=== PATIENT | male | born 1965 | race Caucasian/White ===

== ENCOUNTER 2022-06-29 09:29 | Observation (INO) | payer OTHER ==
[~2022-06-29] VITALS: Ht 167.6 cm; Wt 63.5 kg
[2022-06-29 09:31] VITALS: BP 137/79
--- NOTE | 2022-06-29 10:10 | NUR ---
56 Y/O MALE BIBA FROM [facility] C/O RIGHT FOOT PAIN X3 DAYS, PER PT HE BELIEVES SOMETHING FELL ON THE FOOT. NOTED WARMTH AROUND THE FOOT. HX DIABETIC FOOT ULCER. NKA PMH: DM, NEUROPATHY, ESRD
--- NOTE | 2022-06-29 11:08 | NUR ---
DR WEBER AT BEDSIDE FOR EVAL
[2022-06-29] MEDS ORDERED: KETOROLAC 30 MG/ML VIAL IM ONE (11:10)
[2022-06-29] MEDS ORDERED: HYDROcodone/APAP 5/325 MG 1 TAB TAB PO ONE (11:10)
--- NOTE | 2022-06-29 11:20 | NUR ---
PER DR WEBER CANCEL TORADOL AND GIVE NORCO
--- NOTE | 2022-06-29 11:25 | NUR ---
X-Ray at bedside.
--- NOTE | 2022-06-29 11:31 | NUR ---
PER DR WEBER PT OK TO EAT CHEESE PUFFS, PT INFORMED AND EATING CHEESE PUFFS AT THIS TIME
--- NOTE | 2022-06-29 12:46 | NUR ---
pt encouraged to give urine "not right now". urinal left at bedside
--- NOTE | 2022-06-29 12:57 | NUR ---
SWABS WALKED TO LAB
[2022-06-29] MEDS ORDERED: LISI-486 PO (13:11)
[2022-06-29] MEDS ORDERED: LIP80 PO (13:11)
[2022-06-29] MEDS ORDERED: METF-1253 PO (13:11)
[2022-06-29] MEDS ORDERED: GABA300C PO (13:11)
[2022-06-29] MEDS ORDERED: INSU100V19 SQ (13:11)
[2022-06-29] MEDS ORDERED: MULT-2086 PO (13:11)
[2022-06-29] MEDS ORDERED: ASPI81CT95 PO (13:11)
[2022-06-29] MEDS ORDERED: LACT10SO40 PO (13:11)
[2022-06-29] MEDS ORDERED: ALOG25TA2 PO (13:11)
[2022-06-29] MEDS ORDERED: OMEP20EC11 PO (13:11)
[2022-06-29] MEDS ORDERED: SERT-514 PO (13:11)
[2022-06-29] MEDS ORDERED: MULT-1301 PO (13:11)
[2022-06-29 14:16] LABS: BASOPHILS % (AUTO) 0.7 % (0.0-2.0); EOSINOPHILS # (AUTO) 0.1 K/uL (0-0.4); EOSINOPHILS % (AUTO) 1.9 % (0.0-4.0); HEMATOCRIT 37.9 % (36-52); HEMOGLOBIN 12.6 g/dL (12.0-18.0); LYMPHOCYTES # (AUTO) 1.6 K/uL (2.0-11.5); LYMPHOCYTES % (AUTO) 24.4 % (20.5-51.1); MEAN CORPUSCULAR HEMOGLOBIN 26 pg (27-31); MEAN CORPUSCULAR HGB CONC 33 g/dL (33-37); MEAN CORPUSCULAR VOLUME 78.4 fL (80-94); MONOCYTES # (AUTO) 0.3 K/uL (0.8-1.0); MONOCYTES % (AUTO) 4.4 % (1.7-9.3); NEUTROPHILS # (AUTO) 4.6 K/uL (1.8-7.7); NEUTROPHILS % (AUTO) 68.6 % (42.2-75.2); PLATELET COUNT (AUTO) 134 K/uL (140-450); RED BLOOD CELL COUNT(AUTO) 4.83 MIL/uL (4.20-6.10); RED CELL DISTRIBUTION WIDTH 18.3 % (11.6-13.7); WHITE BLOOD COUNT (AUTO) 6.7 K/uL (4.8-10.8)
[2022-06-29 14:52] LABS: ALBUMIN 4.4 g/dL (3.4-5.0); ANION GAP 12.9 (8-16); CARBON DIOXIDE 28.4 mmol/L (21-32); POTASSIUM 4.3 mmol/L (3.5-5.1); TOTAL BILIRUBIN 0.6 mg/dL (0.0-1.0)
--- NOTE | 2022-06-29 15:12 | NUR ---
pt recouranged to give urine.
--- NOTE | 2022-06-29 15:12 | NUR ---
MD RAY AT BEDSIDE FOR EVALUATION.
[2022-06-29] MEDS ORDERED: ONDANSETRON 4 MG/2 ML VIAL IVP PRN (15:20)
[2022-06-29] MEDS ORDERED: MORPHINE SULFATE 4 MG/ML SYR IVP PRN (15:20)
[2022-06-29] MEDS ORDERED: ACETAMINOPHEN 325 MG TAB PO PRN (15:20)
[2022-06-29] MEDS ORDERED: INSULIN LANTUS 100 UNITS/ML 10 ML VIAL SUBQ SCH (15:20)
[2022-06-29] MEDS ORDERED: HYDROcodone/APAP 5/325 MG 1 TAB TAB PO PRN (15:20)
[2022-06-29] MEDS ORDERED: VANCOMYCIN PER PHARMACY MC PRN (15:25)
[2022-06-29] MEDS: NACL 0.9% 1,000 ML IV SCH (15:30)
--- NOTE | 2022-06-29 18:02 | NUR ---
pt provided w/ dinner. pt awake , repositioned and eating in bed.
[2022-06-29] MEDS ORDERED: VANCOMYCIN 1,000 MG VIAL ONE (18:04)
[2022-06-29] MEDS: VANCOMYCIN 1,000 MG in DEXTROSE 5% 250 ML IV SCH (18:12)
--- NOTE | 2022-06-29 19:21 | NUR ---
REPORT GIVEN TO SIMIN CASTANON. TRANSFER OF CARE AT THIS TIME
--- NOTE | 2022-06-29 20:21 | NUR ---
new line started on pt's R hand 24g, due to previous line not being accessible.
--- NOTE | 2022-06-29 22:00 | NUR ---
pt in room and on compliance monitor. tolerated food well and awaiting admission
--- NOTE | 2022-06-30 02:30 | NUR ---
pt resting in room, stated he had bilateral hand and feet pain. 11/19
[2022-06-30] MEDS: NACL 0.9% 1,000 ML IV SCH ×2 (04:59→16:09)
[2022-06-30] MEDS ORDERED: VANCOMYCIN 1,000 MG VIAL ONE (05:35)
[2022-06-30] MEDS: VANCOMYCIN 1,000 MG in DEXTROSE 5% 250 ML IV SCH ×2 (05:45→16:07)
--- NOTE | 2022-06-30 05:46 | NUR ---
resting in room awaiting admission on supervisor coating
--- NOTE | 2022-06-30 06:31 | NUR ---
lab at bedside
[2022-06-30 07:07] LABS: BASOPHILS % (AUTO) 0.6 % (0.0-2.0); EOSINOPHILS # (AUTO) 0.1 K/uL (0-0.4); EOSINOPHILS % (AUTO) 2.8 % (0.0-4.0); HEMATOCRIT 36.2 % (36-52); HEMOGLOBIN 11.9 g/dL (12.0-18.0); LYMPHOCYTES # (AUTO) 1.3 K/uL (2.0-11.5); LYMPHOCYTES % (AUTO) 27.1 % (20.5-51.1); MEAN CORPUSCULAR HEMOGLOBIN 26 pg (27-31); MEAN CORPUSCULAR HGB CONC 33 g/dL (33-37); MEAN CORPUSCULAR VOLUME 78.2 fL (80-94); MONOCYTES # (AUTO) 0.3 K/uL (0.8-1.0); MONOCYTES % (AUTO) 6.7 % (1.7-9.3); NEUTROPHILS % (AUTO) 62.8 % (42.2-75.2); PLATELET COUNT (AUTO) 114 K/uL (140-450); RED BLOOD CELL COUNT(AUTO) 4.63 MIL/uL (4.20-6.10); RED CELL DISTRIBUTION WIDTH 18.6 % (11.6-13.7); WHITE BLOOD COUNT (AUTO) 4.7 K/uL (4.8-10.8)
--- NOTE | 2022-06-30 07:23 | NUR ---
Pt report given to Marianne. Transfer of care at this time.
--- NOTE | 2022-06-30 07:27 | NUR ---
Report recieved from LG Wilson for transfer of care.
[2022-06-30 07:29] LABS: ANION GAP 10.6 (8-16); CARBON DIOXIDE 28.6 mmol/L (21-32); POTASSIUM 4.2 mmol/L (3.5-5.1)
--- NOTE | 2022-06-30 08:32 | NUR ---
Patient will be admitted to care of Dr. Horoiwtz. Admited to Med/Surg. Will go to room 112-B. Belongings list completed. Report to TERRI Gregorio.
--- NOTE | 2022-06-30 08:40 | NUR ---
The patient's care was reviewed and supervised by ED Agency Nurse 9, RN, RN.
[2022-06-30 08:47] VITALS: BP 126/51
--- NOTE | 2022-06-30 09:00 | NUR ---
RECEIVED PT FROM ER, REPORT RECEIVED BY ER NURSE. PATIENT IS AAO x4, RESPIRATIONS EVEN AND UL ON RA, DENIES PAIN/DISCOMFORT. IV SITE TO RH AND LH, IV SITES WNL. VITAL SIGNS STABLE. RIGHT FOOT SCABS x2, CLUB ROOM ATTENDANT, NO DRAINAGE NOTED. 1 SCAB NOTED TO LLE, YUNG, NO DRAINIAGE NOTED. DRY SKIN NOTED TO BLE. WOUND PHOTO DOCUMENTATION TAKEN AND PLACED IN CHART. ADMISSION INFORMATION OBTAINED FROM PATIENT. ALL NEEDS MET. SAFETY MEASURES IN PLACE, CALL LIGHT IN REACH.
[2022-06-30] MEDS ORDERED: CEPH-588 PO (10:35)
[2022-06-30 16:00] VITALS: BP 130/73
[2022-06-30 17:28] VITALS: BP 140/80
--- NOTE | 2022-06-30 18:10 | NUR ---
RECEIVED DISCHARGE ORDERS, DISCHARGE PACKET GIVEN AND EXPLAINED TO PATIENT, PATIENT VERBALIZED UNDERSTANDING OF ALL DISCHARGE PACKET/INSTRUCTIONS/PRESCRIPTIONS/EDUCATION MATERIALS/FOLLOW UP APPT. SIGNED DISCHARGE PACKET PLACED IN CHART. PT DRESSED AND PREPARED FOR DISCHARGE. PER CONTRACT PROCESSOR PANKAJ, TRANSPORTATION BACK TO [facility] IS SCHEDULED FOR 18OO. CALLED [facility] AND SPOKE WITH [employer], REPORT GIVEN.
--- NOTE | 2022-06-30 18:33 | NUR ---
PATIENT DISCHARGED WITH ALL BELONGINGS INCLUDING CELL PHONE, WALLET, CLOTHING, DISCHARGE PACKET. PATIENT TAKEN BY [facility], REPORT GIVEN TO TRANSPORTATION. IV SITES REMOVED, CATH INTACT, NO BLEEDING NOTED.
--- NOTE | 2022-06-30 18:33 | NUR ---
SIGNED DISCHARGE PACKET PLACED IN CHART.
[2022-07-01] MEDS ORDERED: SODIUM CHLORIDE 1 GM TAB PO SCH (09:00)
== END 2022-06-30 18:33 ==
LOC: MED 09:29 → MMU 15:19 → MTU 15:19
PROVIDERS: ADMIT Student in an Organized Health Care Education/Training Program; ATTEND Student in an Organized Health Care Education/Training Program
DX: L03.116 Cellulitis of left lower limb (principal); Z20.822 Contact with and (suspected) exposure to COVID-19; L03.115 Cellulitis of right lower limb; I13.2 Hypertensive heart and chronic kidney disease with heart failure and with stage 5 chronic kidney disease, or end stage renal disease; E11.22 Type 2 diabetes mellitus with diabetic chronic kidney disease; I50.9 Heart failure, unspecified; N18.6 End stage renal disease; E86.1 Hypovolemia; E87.1 Hypo-osmolality and hyponatremia; E78.5 Hyperlipidemia, unspecified; Z99.2 Dependence on renal dialysis; Z86.73 Personal history of transient ischemic attack (TIA), and cerebral infarction without residual deficits; Z79.899 Other long term (current) drug therapy; Z23 Encounter for immunization
CPT/HCPCS: 36415; 73630; 80048; 80053; 85025; 87426; 90471; 90715; 96361; 96365; 96366; 96375; 97110; 97116; 97162; 97530; 99284; G0378; J2270; J3370; Q0092; J7060

== ENCOUNTER 2022-07-23 16:01 | Emergency (ER) | payer OTHER ==
[~2022-07-23] VITALS: Ht 167.6 cm; Wt 82.8 kg
[~2022-07-23 16:01] MED LIST: ALOG25TA2 PO; ASPI81CT95 PO; CEPH-588 PO; GABA300C PO; INSU100V19 SQ; LACT10SO40 PO; LIP80 PO; LISI-486 PO; METF-1253 PO; MULT-1301 PO; MULT-2086 PO; OMEP20EC11 PO; SERT-514 PO
--- NOTE | 2022-07-23 16:16 | NUR ---
BIBA BLS TO ER BED 5
[2022-07-23 16:24] VITALS: BP 135/57
[2022-07-23] MEDS ORDERED: MORPHINE SULFATE 4 MG/ML SYR IVP ONE (16:35)
[2022-07-23] MEDS ORDERED: VANCOMYCIN 1,000 MG in DEXTROSE 5% 250 ML IV ONE (16:35)
[2022-07-23] MEDS ORDERED: NACL 0.9% 1,000 ML IV SCH (16:35)
[2022-07-23] MEDS ORDERED: ONDANSETRON 4 MG/2 ML VIAL IVP ONE (16:35)
[2022-07-23 18:14] LABS: BASOPHILS % (AUTO) 0.4 % (0.0-2.0); EOSINOPHILS # (AUTO) 0.1 K/uL (0-0.4); HEMATOCRIT 34.7 % (36-52); HEMOGLOBIN 11.6 g/dL (12.0-18.0); LYMPHOCYTES # (AUTO) 1.3 K/uL (2.0-11.5); MEAN CORPUSCULAR HEMOGLOBIN 26 pg (27-31); MEAN CORPUSCULAR HGB CONC 34 g/dL (33-37); MEAN CORPUSCULAR VOLUME 78.8 fL (80-94); MONOCYTES # (AUTO) 0.3 K/uL (0.8-1.0); MONOCYTES % (AUTO) 5.4 % (1.7-9.3); NEUTROPHILS # (AUTO) 4.5 K/uL (1.8-7.7); NEUTROPHILS % (AUTO) 72.2 % (42.2-75.2); PLATELET COUNT (AUTO) 135 K/uL (140-450); RED BLOOD CELL COUNT(AUTO) 4.41 MIL/uL (4.20-6.10); RED CELL DISTRIBUTION WIDTH 18.9 % (11.6-13.7); WHITE BLOOD COUNT (AUTO) 6.3 K/uL (4.8-10.8)
[2022-07-23] MEDS ORDERED: MORPHINE SULFATE 4 MG/ML SYR ONE (18:34)
[2022-07-23 18:38] LABS: ALBUMIN 3.9 g/dL (3.4-5.0); ANION GAP 12.1 (8-16); CARBON DIOXIDE 28.5 mmol/L (21-32); CREATININE 1.1 mg/dL (0.6-1.3); POTASSIUM 3.6 mmol/L (3.5-5.1); TOTAL BILIRUBIN 0.6 mg/dL (0.0-1.0)
[2022-07-23] MEDS ORDERED: VANCOMYCIN 1,000 MG VIAL ONE (18:38)
[2022-07-23] MEDS ORDERED: ONDANSETRON 4 MG/2 ML VIAL ONE (18:38)
[2022-07-23] MEDS ORDERED: NON ADHERENT DRESSING TP SCH (19:10)
[2022-07-23] MEDS ORDERED: BACITRACIN OINT 500 UNITS/GM PKT TP ONE ×2 (19:10→21:10)
[2022-07-23] MEDS ORDERED: BACO TP (19:14)
[2022-07-23] MEDS ORDERED: ACET-10509 PO (19:14)
--- NOTE | 2022-07-23 19:21 | NUR ---
Report given to TERRI Peña for transfer of care.
--- NOTE | 2022-07-23 19:26 | NUR ---
PT MOVED FROM ER BED 5 TO ER BED 1
--- NOTE | 2022-07-23 19:37 | NUR ---
bilateral anterior calf wounds dressed with non adherent and bandaged with roller gauze
--- NOTE | 2022-07-23 20:00 | NUR ---
Patient received on bed lying comfortably and awake. Alert and orieted x4. No acute distress. No complaints of pain or discomfort. Respirations even and unlabored.
--- NOTE | 2022-07-23 22:15 | NUR ---
Called [facility] and spoke to TERRI Curran. Notified [facility] of patient's situation of being discharged and will be sent back to their facility.
[2022-07-23 22:21] VITALS: BP 130/60
--- NOTE | 2022-07-23 22:21 | NUR ---
Patient discharged with v/s stable. Written and verbal after care instructions given and explained. Patient alert, oriented and verbalized understanding of instructions. Wheel Chair Assisted with by caregiver. All questions addressed prior to discharge. ID band removed. Patient advised to follow up with PMD. Rx of Tylenol and Bacitracin given. Patient educated on indication of medication including possible reaction and side effects. Opportunity to ask questions provided and answered.
== END 2022-07-23 22:21 | disposition home or self-care (01) ==
LOC: MED 16:01
DX: E11.621 Type 2 diabetes mellitus with foot ulcer (principal); L97.511 Non-pressure chronic ulcer of other part of right foot limited to breakdown of skin; E11.65 Type 2 diabetes mellitus with hyperglycemia; E11.622 Type 2 diabetes mellitus with other skin ulcer; L97.321 Non-pressure chronic ulcer of left ankle limited to breakdown of skin; D64.9 Anemia, unspecified; E87.1 Hypo-osmolality and hyponatremia; E87.8 Other disorders of electrolyte and fluid balance, not elsewhere classified; I10 Essential (primary) hypertension; N18.6 End stage renal disease; I25.10 Atherosclerotic heart disease of native coronary artery without angina pectoris; Z86.73 Personal history of transient ischemic attack (TIA), and cerebral infarction without residual deficits; Z99.2 Dependence on renal dialysis; Z79.4 Long term (current) use of insulin; Z79.899 Other long term (current) drug therapy
CPT/HCPCS: 36415; 73630; 80053; 83605; 85025; 85610; 85651; 85730; 86140; 87040; 96361; 96365; 96375; 99285; J2270; J2405; J3370; J7030

== ENCOUNTER 2022-08-24 15:02 | Inpatient (IN) | payer OTHER ==
[~2022-08-24] VITALS: Ht 167.6 cm; Wt 90.7 kg
[~2022-08-24 15:02] MED LIST changes: +ACET-10509 PO; +BACO TP; +LACT-58 PO; -LACT10SO40 PO
[2022-08-24 15:09] VITALS: BP 139/71
--- NOTE | 2022-08-24 15:30 | NUR ---
LAB AT BEDSIDE.
[2022-08-24 15:49] LABS: BASOPHILS % (AUTO) 0.4 % (0.0-2.0); EOSINOPHILS # (AUTO) 0.2 K/uL (0-0.4); EOSINOPHILS % (AUTO) 2.2 % (0.0-4.0); HEMATOCRIT 35.8 % (36-52); LYMPHOCYTES # (AUTO) 1.7 K/uL (2.0-11.5); LYMPHOCYTES % (AUTO) 24.4 % (20.5-51.1); MEAN CORPUSCULAR HEMOGLOBIN 27 pg (27-31); MEAN CORPUSCULAR HGB CONC 34 g/dL (33-37); MEAN CORPUSCULAR VOLUME 81.4 fL (80-94); MONOCYTES # (AUTO) 0.4 K/uL (0.8-1.0); MONOCYTES % (AUTO) 6.1 % (1.7-9.3); NEUTROPHILS # (AUTO) 4.8 K/uL (1.8-7.7); NEUTROPHILS % (AUTO) 66.9 % (42.2-75.2); PLATELET COUNT (AUTO) 136 K/uL (140-450); RED CELL DISTRIBUTION WIDTH 17.9 % (11.6-13.7); WHITE BLOOD COUNT (AUTO) 7.2 K/uL (4.8-10.8)
--- NOTE | 2022-08-24 15:53 | NUR ---
57 Y/OM BIBA FROM [facility] C/O DIABETIC ULCERS X2 MONTHS W FEET PAIN 09/19. PMH: HTN, DM, HIGH CHOL ALLERGIES:DENIES
[2022-08-24 16:23] LABS: ALBUMIN 3.5 g/dL (3.4-5.0); ANION GAP 12.1 (8-16); ASPARTATE AMINOTRANSFERASE 23 U/L (15-37); CARBON DIOXIDE 29.6 mmol/L (21-32); CHLORIDE 99 mmol/L (98-107); GFR ARICAN-AMERICAN 99 mL/min (>90); GLUCOSE 241 mg/dL (74-106); POTASSIUM 3.7 mmol/L (3.5-5.1); SODIUM SERUM 137 mmol/L (136-145); TOTAL BILIRUBIN 0.4 mg/dL (0.0-1.0); UREA NITROGEN, BLOOD 19 mg/dL (7-18)
[2022-08-24] MEDS ORDERED: VANCOMYCIN 1,000 MG in DEXTROSE 5% 250 ML IV ONE (16:40)
[2022-08-24] MEDS ORDERED: cefTRIAXone 2,000 MG in DEXTROSE 5% 100 ML IV ONE (16:40)
[2022-08-24] MEDS ORDERED: NACL 0.9% 1,000 ML IV ONE (16:45)
[2022-08-24] MEDS ORDERED: cefTRIAXone 2,000 MG VIAL ONE (16:51)
[2022-08-24] MEDS ORDERED: MORPHINE SULFATE 4 MG/ML SYR IVP ONE (16:55)
[2022-08-24] MEDS ORDERED: NAPR-1704 PO (18:01)
[2022-08-24] MEDS ORDERED: [UNRECOGNIZED DRUG - CODE] PO (18:01)
[2022-08-24] MEDS ORDERED: NEOM1OIN15 TP (18:01)
[2022-08-24] MEDS ORDERED: ALUM355S50 PO (18:01)
[2022-08-24] MEDS ORDERED: ACET-2619 PO (18:01)
[2022-08-24] MEDS ORDERED: TRAM50TA3 PO (18:01)
[2022-08-24] MEDS ORDERED: ALBU0.0912 IH (18:01)
[2022-08-24] MEDS ORDERED: [UNRECOGNIZED DRUG - CODE] PO (18:01)
[2022-08-24] MEDS ORDERED: TEMA15CA24 PO (18:01)
[2022-08-24] MEDS ORDERED: INSU100I7 SQ (18:01)
[2022-08-24] MEDS ORDERED: MULT-135 PO (18:01)
[2022-08-24] MEDS ORDERED: MAGN400S60 PO (18:01)
[2022-08-24] MEDS ORDERED: HUM SUBQ (18:01)
[2022-08-24] MEDS ORDERED: MECL-370 PO (18:01)
[2022-08-24] MEDS ORDERED: ALOG25TA PO (18:01)
[2022-08-24] MEDS ORDERED: LACT10SO93 PO (18:01)
[2022-08-24] MEDS ORDERED: VANCOMYCIN 1,000 MG VIAL ONE (18:05)
[2022-08-24] MEDS ORDERED: LORazepam 2 MG/ML VIAL IVP PRN (18:45)
[2022-08-24] MEDS ORDERED: ONDANSETRON 4 MG/2 ML VIAL IVP PRN (18:45)
[2022-08-24] MEDS ORDERED: ACETAMINOPHEN 325 MG TAB PO PRN (18:45)
[2022-08-24] MEDS ORDERED: VANCOMYCIN PER PHARMACY MC PRN (18:50)
--- NOTE | 2022-08-24 19:04 | NUR ---
The patient's care was reviewed and supervised by [place] 05 RODO, RN.
[2022-08-24] MEDS: NACL 0.9% 1,000 ML IV SCH (19:11)
--- NOTE | 2022-08-24 19:13 | NUR ---
Patient resting in bed, A/Ox4, chest rise and fall symmetrical, no c/o pain or s/s of distress, on monitor.
--- NOTE | 2022-08-24 19:14 | NUR ---
GAVE REPORT TO NIECY MURRAY.
--- NOTE | 2022-08-24 21:07 | NUR ---
Urinal emptied, yellow/clear, 600 mL.
--- NOTE | 2022-08-24 21:07 | NUR ---
Patient resting in bed, A/Ox4, chest rise and fall symmetrical, no c/o pain or s/s of distress, on monitor.
--- NOTE | 2022-08-24 22:04 | NUR ---
Patient resting in bed, A/Ox4, chest rise and fall symmetrical, no c/o pain or s/s of distress, on monitor.
--- NOTE | 2022-08-24 22:25 | NUR ---
Patient will be admitted to care of Dr. Taylor. Admited to Medr. Will go to room 104B. Belongings list completed. Report to Yasmeen MURRAY. Yasmeen MURRAY verbalized understanding of report, no further questions.
--- NOTE | 2022-08-24 22:36 | NUR ---
Ifrah lane in ED - 08/24/22 at 2241 by [id number] Med/tele Charge Nurse SOCORRO MURRAY verbally informed that verbal order received for DM sliding scale which was ordered for 2300 hrs. Med/tele Charge Nurse SOCORRO MURRAY verbalized understanding and stated that she "will let Yasmeen MURRAY know."
[2022-08-24] MEDS ORDERED: DEXTROSE 50% 50 ML SYR IVP PRN (23:00)
[2022-08-25] VITALS: BP 161/84
[2022-08-25] MEDS ORDERED: cefTRIAXone 1,000 MG VIAL ONE (00:02)
[2022-08-25] MEDS: BLOOD GLUCOSE MONITORING 1 DEV DEV FS SCH ×6 (00:30→21:26)
[2022-08-25] MEDS: INSULIN LISPRO SLIDING SCALE 100 UNITS/ML VIAL SUBQ PRN ×4 (00:37→21:26)
[2022-08-25] MEDS: MORPHINE SULFATE 2 MG/ML SYR IVP PRN ×2 (00:59→12:49)
[2022-08-25] MEDS ORDERED: VANCOMYCIN 1,000 MG in DEXTROSE 5% 250 ML IV SCH (06:00)
[2022-08-25 06:31] LABS: BASOPHILS % (AUTO) 0.8 % (0.0-2.0); EOSINOPHILS # (AUTO) 0.2 K/uL (0-0.4); EOSINOPHILS % (AUTO) 3.7 % (0.0-4.0); HEMATOCRIT 33.2 % (36-52); LYMPHOCYTES # (AUTO) 1.1 K/uL (2.0-11.5); LYMPHOCYTES % (AUTO) 23.8 % (20.5-51.1); MEAN CORPUSCULAR HEMOGLOBIN 27 pg (27-31); MEAN CORPUSCULAR HGB CONC 33 g/dL (33-37); MEAN CORPUSCULAR VOLUME 81.2 fL (80-94); MONOCYTES # (AUTO) 0.3 K/uL (0.8-1.0); MONOCYTES % (AUTO) 6.5 % (1.7-9.3); NEUTROPHILS % (AUTO) 65.2 % (42.2-75.2); PLATELET COUNT (AUTO) 117 K/uL (140-450); RED BLOOD CELL COUNT(AUTO) 4.09 MIL/uL (4.20-6.10); RED CELL DISTRIBUTION WIDTH 17.5 % (11.6-13.7); WHITE BLOOD COUNT (AUTO) 4.7 K/uL (4.8-10.8)
[2022-08-25 06:51] LABS: ALBUMIN 3.1 g/dL (3.4-5.0); ANION GAP 11.1 (8-16); CARBON DIOXIDE 31.7 mmol/L (21-32); CREATININE 0.9 mg/dL (0.6-1.3); MAGNESIUM 1.2 mg/dL (1.8-2.4); POTASSIUM 3.8 mmol/L (3.5-5.1); TOTAL BILIRUBIN 0.3 mg/dL (0.0-1.0)
[2022-08-25 08:00] VITALS: BP 148/67
[2022-08-25] MEDS: NACL 0.9% 1,000 ML IV SCH ×2 (09:22→21:25)
[2022-08-25] MEDS: VANCOMYCIN 1,000 MG in DEXTROSE 5% 250 ML IV SCH ×2 (09:23→22:10)
--- NOTE | 2022-08-25 11:09 | NUR ---
RECEIVED A CALL FROM RERE, PT'S SISTER ([phone]), REQUESTING PT STAY ON DIABETIC DIET. CONCERNS FORWARDED TO DIETARY DEPARTMENT.
[2022-08-25 16:00] VITALS: BP 143/76
[2022-08-25] MEDS: MAG SULF 2000 MG/WATER PREMIX 50 ML IV ONE ×2 (18:17→23:17)
--- NOTE | 2022-08-25 18:46 | NUR ---
Saline Lock pulled out (accidently). Restart attempted x 1 - failed. Endorsed to CN for further f/u.
--- NOTE | 2022-08-25 19:25 | NUR ---
RECEIVED PATIENT RESTING COMFORTABLY IN BED. NO SOB NOTED ON ROOM AIR. DENIES PAIN. NO IV ACCESS. CALL LIGHT WITHIN REACH. SAFETY MEASURES ARE IN PLACE.
--- NOTE | 2022-08-25 19:50 | NUR ---
STARTED A NEW IV TO RIGHT FOREARM 22 GAUGE WITH GOOD RETURN OF BLOOD. TOLERATED WELL.
--- NOTE | 2022-08-25 20:36 | NUR ---
DUE MEDS GIVEN.
[2022-08-26] VITALS: BP 137/73
--- NOTE | 2022-08-26 03:14 | NUR ---
PATIENT COMPLAINED OF PAIN 11/19, MORPHINE GIVEN IVP.
--- NOTE | 2022-08-26 07:34 | NUR ---
GAVE REPORT TO AM SHIFT NURSE FOR CONTINUITY OF CARE. PATIENT STABLE.
[2022-08-26 07:47] VITALS: BP 158/79
[2022-08-26] MEDS: VANCOMYCIN 1,000 MG in DEXTROSE 5% 250 ML IV SCH ×2 (08:35→22:52)
--- NOTE | 2022-08-26 09:22 | NUR ---
PATIENT HAS BEEN SCREENED AND CATEGORIZED HIGH NUTRITION RISK. PATIENT WILL BE SEEN WITHIN 1-2 DAYS OF ADMISSION. 08/24/22-08/26/[address] REFERRAL RECEIVED FOR WOUNDS/PRESSURE INJURY
[2022-08-26] MEDS: NACL 0.9% 1,000 ML IV SCH (10:56)
[2022-08-26] MEDS: BLOOD GLUCOSE MONITORING 1 DEV DEV FS SCH ×3 (11:32→21:44)
[2022-08-26] MEDS: INSULIN LISPRO SLIDING SCALE 100 UNITS/ML VIAL SUBQ PRN ×2 (11:37→21:48)
--- NOTE | 2022-08-26 14:05 | NUR ---
08/26/22 RD INITIAL ASSESSMENT COMPLETED.PLEASE REFER TO NUTRITION ASSESSMENT UNDER CARE ACTIVITY FOR ESTIMATED NUTRITIONAL NEEDS. 1. CONTINUE CCHO 60 GM DIET 2. RECOMMEND TRESSA BID TO PROMOTE WOUND HEALING 3. MONITOR FOR WOUND HEALING 4. RD TO FOLLOW-UP 3-5 DAYS, MODERATE RISK [address] Addendum: 08/27/22 at [address] RECOMMEND SWITCHING TRESSA BID WITH PROSOURCE BID FOR WOUND SUPPORT PER PT REQUESTING MORE PROTEIN. -PROSOURCE BID PROVIDES 120 KCAL AND 30 GM PROTEIN DAILY.
[2022-08-26 16:00] VITALS: BP 142/82
[2022-08-26] MEDS: MORPHINE SULFATE 2 MG/ML SYR IVP PRN (20:10)
--- NOTE | 2022-08-26 20:10 | NUR ---
SCHEDULED MEDICATIONS DUE GIVEN. PATIENT AWAKE ALERT VERBALLY RESPONSIVE. NO DISTRESS NOTED. ABLE TO MAKE NEEDS KNOWN. COMPLAINED OF SEVERE RIGHT FOOT PAIN, MEDICATED. CALL LIGHT WITHIN REACH BED WHEELS LOCKED. AFEBRILE.
[2022-08-27] VITALS: BP 147/78
[2022-08-27] MEDS: NACL 0.9% 1,000 ML IV SCH ×2 (00:05→13:25)
[2022-08-27] MEDS: MORPHINE SULFATE 2 MG/ML SYR IVP PRN (01:59)
--- NOTE | 2022-08-27 01:59 | NUR ---
PATIENT COMPLAINED OF MODERATE RIGHT FOOT PAIN, MEDICATED ORDERED.
[2022-08-27] MEDS: INSULIN LISPRO SLIDING SCALE 100 UNITS/ML VIAL SUBQ PRN ×4 (06:47→20:56)
[2022-08-27] MEDS: BLOOD GLUCOSE MONITORING 1 DEV DEV FS SCH ×4 (06:47→20:51)
--- NOTE | 2022-08-27 07:20 | NUR ---
RECEIVED REPORT FROM KITCHEN HELP HANDYMAN NURSE NANCY FOR CONTINUITY OF CARE. INITIAL ASSESSMENT DONE. IVF INFUSING WELL. NO C/O PAIN OR DISCOMFORT. CALL LIGHT KEPT WITHIN REACH. WILL MONITOR CLOSELY.
--- NOTE | 2022-08-27 07:20 | NUR ---
RECEIVED PT IN Addendum: 08/27/22 at 1240 by ASHANTI JACOBS LVN ENTERED INCOMPLETE DOCUMENTATION
--- NOTE | 2022-08-27 07:28 | NUR ---
GAVE REPORT TO DAY SHIFT NURSE FOR CONTINUITY OF CARE. PATIENT STABLE.
[2022-08-27 08:00] VITALS: BP 126/55
[2022-08-27] MEDS: VANCOMYCIN 1,000 MG in DEXTROSE 5% 250 ML IV SCH (08:31)
--- NOTE | 2022-08-27 08:31 | NUR ---
IV ABT VANCOMYCIN WAS GIVEN BY ALEJANDRO MURRAY. TOLERATED WELL.
[2022-08-27 08:48] LABS: ALBUMIN 3.1 g/dL (3.4-5.0); ANION GAP 11.1 (8-16); CARBON DIOXIDE 29.8 mmol/L (21-32); CREATININE 0.9 mg/dL (0.6-1.3); POTASSIUM 3.9 mmol/L (3.5-5.1); TOTAL BILIRUBIN 0.4 mg/dL (0.0-1.0)
--- NOTE | 2022-08-27 09:57 | NUR ---
RECEIVED CALLED FROM LAB. MRSA NARES POSITIVE. DR. ANDERSEN NOTIFIED. PROTOCOL INITIATED.
--- NOTE | 2022-08-27 11:43 | NUR ---
PT. ADMITTED WITH BILATERAL LOWER LEGS CELLULITIS , MULTIPLE OPEN WOUNDS WITH LARGEST TO LEFT DORSAL FOOT 3X4X0.3CM WOUND BED YELLOW / BROWN SMALL AMOUNT PURULENT DRAINAGE, MILD ODOR, PAIN 0/10. PENDING PODIATRY CONSULT AND WOUND CX RESULT. AT THIS TIME WILL TREAT WOUND WITH, CLEANSE WOUNDS WITH WOUND CLEANSING SOLUTION, PAT DRY, APPLY OIL EMULSION DRESSING, COVER WITH DRY DRESSING AND WRAP WITH KERLIX ROLL,SECURED WITH TAPE. DAILY AND PRN IF SOILING.
--- NOTE | 2022-08-27 12:02 | NUR ---
BS CHECKED 224. INSULIN WAS GIVEN PER SLIDING SCALE.
--- NOTE | 2022-08-27 12:46 | NUR ---
DC PLANNING ASSESSMENT COMPLETE PLEASE REFER TO ASSESSMENT FOR ADDITIONAL DETAILS PATIENT REPORTS TENTATIVE DC PLAN IS PENDING PHYSICIANS RECEOMMENDATIONS. SPOKE TO PT ABOUT SNF IF RECOMMENDED, PT REPORTS AGREEMENT TO SNF IF RECOMMENDED BY PHYSICIAN, SO LONG IT IS SHORT TERM AND TEMP. SW ENDORSED TO CM. Addendum: 08/27/22 at 1247 by Jasmin CLANCY Amended: Links added.
--- NOTE | 2022-08-27 13:58 | NUR ---
DC PLANNIN YRS OLD MALE PATIENT WAS ADMITTED FROM [facility] WITH A DX OF PATIENT HAS A HX OF HTN, DM, HLD AND CHRONIC DIABETIC ULCERS TO THE LOWER EXTREMITIES. KRYSTINA ULTRASOUND SHOWED NO DVT . RAPID COVID TEST NEGATIVE. ADMINISTERED IVF, IV ABX VANCOMYCIN AND ROCEPHIN AND CONTINUED HOME MEDS. SEEN BY DR HOANG NOT NEED ANY SURGICAL INTERVENTION AWAITING FOR WOUND CULTURE . DC PLAN SNF FOR IV ABX. CM TO FOLLOW Addendum: 08/29/22 at 1255 by Camila Loja RN DC PLANNING RECEIVED A CALL FROM SAVANNAH CHAVEZ SPOKE WITH CINDY NOVAK PT CAN GO TO ROOM 19B CALLED XIN AT [facility] PROVIDE THE AUTH FOR TRANSPORT [id number] AND FOR SAVANNAH VALENTIN [id number] ARRANGED TRANSPORT WITH [facility] SKETCHER TIME 3PM NOTIFIED PATIENT AND DARYL MURRAY. CM TO FOLLOW
[2022-08-27 16:00] VITALS: BP 136/82
[2022-08-27] MEDS: CHLORHEXADINE GLUC 2% CLOTH TP SCH (16:00)
[2022-08-27] MEDS: MUPIROCIN CA NASAL 2% 1GM TUBE NS SCH (16:00)
--- NOTE | 2022-08-27 17:07 | NUR ---
BS CHECKED 288. INSULIN WAS GIVEN PER SLIDING SCALE. ADMINISTERED SCHEDULED MEDICATIONS. TOLERATED WELL.
[2022-08-27] MEDS: GABAPENTIN 300 MG CAP PO SCH (17:13)
--- NOTE | 2022-08-27 19:15 | NUR ---
REPORT GIVEN TO NANCY FOR CONTINUITY OF CARE. REMAINS STABLE.
--- NOTE | 2022-08-27 19:16 | NUR ---
RECEIVED PATIENT AWAKE RESTING IN BED, NO S/S OF RESPIRATORY DISTRESS. NO COMPLAINTS OF PAIN AT THIS TIME. IVF NS INFUSING ORDERED. CALL LIGHT WITHIN REACH. BED WHEELS LOCK IN LOWEST POSITION. WILL CONTINUE TO MONITOR.
[2022-08-27] MEDS: VANCOMYCIN 1.25GM PREMIX 250 ML IV SCH (20:48)
--- NOTE | 2022-08-27 20:48 | NUR ---
VANCOMYCIN ADMINISTERED ORDERED.
[2022-08-27] MEDS: INSULIN LANTUS 100 UNITS/ML 10 ML VIAL SUBQ SCH (20:56)
[2022-08-28] VITALS: BP 155/80
[2022-08-28] MEDS: NACL 0.9% 1,000 ML IV SCH ×4 (01:52→21:39)
--- NOTE | 2022-08-28 07:22 | NUR ---
RECEIVED REPORT FROM KEY MAKER FOR CONTINUITY OF CARE. INITIAL ASSESSMENT DONE. IVF INFUSING WELL. NOT IN ANY DISTRESS NOTED. CALL LIGHT KEPT WITHIN REACH. WILL MONITOR CLOSELY.
--- NOTE | 2022-08-28 07:23 | NUR ---
BEDSIDE REPORT GIVEN TO DAY SHIFT NURSE FOR CONTINUITY OF CARE.
[2022-08-28 07:26] LABS: BASOPHILS % (AUTO) 0.4 % (0.0-2.0); EOSINOPHILS # (AUTO) 0.1 K/uL (0-0.4); HEMOGLOBIN 11.8 g/dL (12.0-18.0); LYMPHOCYTES # (AUTO) 1.4 K/uL (2.0-11.5); LYMPHOCYTES % (AUTO) 23.6 % (20.5-51.1); MEAN CORPUSCULAR HEMOGLOBIN 27 pg (27-31); MEAN CORPUSCULAR HGB CONC 34 g/dL (33-37); MEAN CORPUSCULAR VOLUME 80.6 fL (80-94); MONOCYTES # (AUTO) 0.4 K/uL (0.8-1.0); MONOCYTES % (AUTO) 6.5 % (1.7-9.3); NEUTROPHILS # (AUTO) 4.1 K/uL (1.8-7.7); NEUTROPHILS % (AUTO) 67.5 % (42.2-75.2); PLATELET COUNT (AUTO) 145 K/uL (140-450); RED BLOOD CELL COUNT(AUTO) 4.35 MIL/uL (4.20-6.10); RED CELL DISTRIBUTION WIDTH 17.1 % (11.6-13.7)
[2022-08-28] MEDS: BLOOD GLUCOSE MONITORING 1 DEV DEV FS SCH ×4 (07:36→21:37)
[2022-08-28 08:00] VITALS: BP 155/89
[2022-08-28 08:05] LABS: ANION GAP 13.1 (8-16); CARBON DIOXIDE 27.7 mmol/L (21-32); CREATININE 0.8 mg/dL (0.6-1.3); POTASSIUM 3.8 mmol/L (3.5-5.1)
[2022-08-28] MEDS: INSULIN LANTUS 100 UNITS/ML 10 ML VIAL SUBQ SCH ×2 (08:27→21:39)
--- NOTE | 2022-08-28 08:36 | NUR ---
SCHEDULED PO MEDICATIONS GIVEN. TOLERATING WELL.
[2022-08-28] MEDS: ASPIRIN 81 MG TAB.CHEW PO SCH (08:37)
[2022-08-28] MEDS: SERTRALINE 50 MG TAB PO SCH (08:37)
[2022-08-28] MEDS: GABAPENTIN 300 MG CAP PO SCH ×3 (08:37→17:00)
[2022-08-28] MEDS: ATORVASTATIN 80 MG TAB PO SCH (08:37)
[2022-08-28] MEDS: lisinopriL 10 MG TAB PO SCH (08:38)
[2022-08-28] MEDS: VANCOMYCIN 1.25GM PREMIX 250 ML IV SCH ×2 (09:07→21:30)
[2022-08-28] MEDS: INSULIN LISPRO SLIDING SCALE 100 UNITS/ML VIAL SUBQ PRN ×3 (12:23→21:38)
--- NOTE | 2022-08-28 12:23 | NUR ---
YASMIN CHECKED 265. NO COVERAGE NEEDED. Addendum: 08/28/22 at 1228 by ASHANTI JACOBS LVN ENTERED INCORRECT DOCUMENTATION
--- NOTE | 2022-08-28 12:23 | NUR ---
BS CHECKED 265. INSULIN WAS GIVEN PER SLIDING SCALE. Addendum: 08/28/22 at 1243 by ASHANTI JACOBS LVN SCHEDULE PO MEDICATIONS GIVEN. TOLERATED WELL.
[2022-08-28 16:00] VITALS: BP 119/60
[2022-08-28] MEDS: CHLORHEXADINE GLUC 2% CLOTH TP SCH (16:00)
[2022-08-28] MEDS: MUPIROCIN CA NASAL 2% 1GM TUBE NS SCH (16:00)
[2022-08-28] MEDS ORDERED: SULF-59 PO (17:17)
--- NOTE | 2022-08-28 17:55 | NUR ---
BS CHECKED 195. INSULIN GIVEN PER SLIDING SCALE. SCHEDULED MEDICATIONS GIVEN. TOLERATING WELL.
--- NOTE | 2022-08-28 18:35 | NUR ---
PT CLEARED FOR DISCHARGE, CALLED [facility], SPOKE TO FEMALE STAFF STATED THAT PREFINISH OPERATOR NEEDS TO APPROVE BEFORE DISCHARGE. CHARGE NURSE AND ACCESS CONSULTANT MADE AWARE.
--- NOTE | 2022-08-28 19:25 | NUR ---
ENDORSED TO RESIDENT HALL DIRECTOR FOR CONTINUITY OF CARE. PT WITH DISCHARGE ORDER, AWAITING FOR [facility] STRATEGIST TO APPROVE PT RETURN. REMAINS STABLE.
--- NOTE | 2022-08-28 19:50 | NUR ---
PATIENT AWAKE ALERT ORIENTED VERBALLY RESPONSIVE. AFEBRILE. IVF NS INFUSING 75 ML/HR TO RIGHT FOREARM. NO DISTRESS NOTED ON ROOM AIR. NO COMPLAINTS OF PAIN. CALL LIGHT ON EASY REACH. BED WHEELS LOCK IN LOW POSITION.
--- NOTE | 2022-08-28 21:30 | NUR ---
DUE MEDS GIVEN ORDERED.
--- NOTE | 2022-08-28 21:37 | NUR ---
CHECKED BLOOD SUGAR WAS 188, INSULIN ADMINISTERED ORDERED.
[2022-08-29] VITALS: BP 108/41
[2022-08-29] MEDS: NACL 0.9% 1,000 ML IV SCH (05:25)
[2022-08-29] MEDS: BLOOD GLUCOSE MONITORING 1 DEV DEV FS SCH ×2 (06:30→11:42)
[2022-08-29] MEDS: INSULIN LISPRO SLIDING SCALE 100 UNITS/ML VIAL SUBQ PRN ×2 (06:31→11:43)
--- NOTE | 2022-08-29 06:31 | NUR ---
BLOOD SUGAR CHECKED 217. ADMINISTERED HUMALOG INSULIN ORDERED PER SLIDING SCALE.
--- NOTE | 2022-08-29 07:34 | NUR ---
ENDORSED PATIENT TO DAY SHIFT NURSE FOR CONTINUITY OF CARE.
[2022-08-29] MEDS ORDERED: VANCOMYCIN PER PHARMACY MC PRN (07:50)
--- NOTE | 2022-08-29 07:54 | NUR ---
GOT REPORT FROM THE NIGHT NURSE, PT SLEEPING, NO SOB.[id number]
[2022-08-29 08:00] VITALS: BP 142/74
[2022-08-29] MEDS: VANCOMYCIN 1.25GM PREMIX 250 ML IV SCH (08:42)
[2022-08-29] MEDS: lisinopriL 10 MG TAB PO SCH (08:42)
[2022-08-29] MEDS: ATORVASTATIN 80 MG TAB PO SCH (08:43)
[2022-08-29] MEDS: ASPIRIN 81 MG TAB.CHEW PO SCH (08:43)
[2022-08-29] MEDS: GABAPENTIN 300 MG CAP PO SCH ×2 (08:43→12:09)
[2022-08-29] MEDS: SERTRALINE 50 MG TAB PO SCH (08:43)
[2022-08-29] MEDS: INSULIN LANTUS 100 UNITS/ML 10 ML VIAL SUBQ SCH (08:46)
[2022-08-29 09:22] LABS: ANION GAP 10.1 (8-16); CARBON DIOXIDE 28.6 mmol/L (21-32); CREATININE 0.9 mg/dL (0.6-1.3); POTASSIUM 3.7 mmol/L (3.5-5.1)
--- NOTE | 2022-08-29 09:52 | NUR ---
WOUND CARE NOTE: BILATERAL LOWER LEGS CELLULITIS , MULTIPLE OPEN WOUNDS FROM LEFT LEG TO RIGHT LATERAL ANKLE WOUNDS WITH LARGEST TO LEFT DORSAL FOOT 3X4X0.2CM WOUND BED RED AND BROWN SMALL AMOUNT SEROSANGUINEOUS DRAINAGE, NO ODOR, PAIN 0/10. SEEN BY PODIATRY, DR. HOANG AND WOUND CX RESULT WITH MRSA. POC DISCUSSED WITH PT. PT. VERBALIZES UNDERSTANDING, WOUND CARE TEACHING DONE PT. NEEDS REINFORCEMENT. POC DISCUSSED WITH PRIMARY RN ANA LAURA ORDER OBTAINED AND TO LOOK FOR ORDERS UNDER COMMUNICATION ORDER PER PHARMACY REQUEST.. RECOMMENDATION: -CLEANSE BLE WOUNDS WITH WOUND CLEANSING SOLUTION, PAT DRY, APPLY BACTROBAN OINT. WITH OIL EMULSION DRESSING, COVER WITH DRY DRESSING AND WRAP WITH KERLIX ROLL,SECURED WITH TAPE. DAILY AND PRN IF SOILING.
[2022-08-29 12:57] VITALS: BP 142/72
[2022-08-29] MEDS ORDERED: MUPIROCIN 2% OINT 22 GM TUBE TP SCH (13:00)
[2022-08-29] MEDS ORDERED: COMMUNICATION ORDER MC SCH (13:00)
[2022-08-29] MEDS: MORPHINE SULFATE 2 MG/ML SYR IVP PRN (13:10)
--- NOTE | 2022-08-29 13:58 | NUR ---
REPORT GIVEN TO THE NURSE ALBERTO IN [facility].[id number]
--- NOTE | 2022-08-29 15:59 | NUR ---
PT DISCHARGED IV AND ID BAND IS GIVEN , DISCHARGE INSTRUCTION GIVEN , PT LEFT WITH TRANSPORTER WITH OUT DISCOMFORT.[id number]
[2022-08-29] MEDS ORDERED: VANCOMYCIN 1,000 MG in NACL 0.9% 250 ML IV SCH (21:00)
== END 2022-08-29 15:15 | DRG 420 ==
LOC: MED 15:02 → MTU 17:46
PROVIDERS: ADMIT Hospitalist; ATTEND Hospitalist
DX: E11.622 Type 2 diabetes mellitus with other skin ulcer (principal); L03.115 Cellulitis of right lower limb; E11.65 Type 2 diabetes mellitus with hyperglycemia; E78.00 Pure hypercholesterolemia, unspecified; Z20.822 Contact with and (suspected) exposure to COVID-19; I10 Essential (primary) hypertension; L03.116 Cellulitis of left lower limb; Z79.4 Long term (current) use of insulin
CPT/HCPCS: 36415; 80048; 80053; 80202; 82550; 82948; 83605; 83735; 84484; 85025; 87040; 87070; 87081; 87186; 93005; 93970; 96365; 96367; 96375; 97163-GP; 97530; 99285; J0696; J1815; J2270; J3370; J3372; J3475; J7030; J7060; Q0092